=== PATIENT | female | born 1950 | race Caucasian/White ===

== ENCOUNTER 2016-10-09 09:39 | Emergency (ER) | payer OTHER ==
[~2016-10-09] VITALS: Ht 157.5 cm; Wt 59.0 kg
--- NOTE | 2016-10-09 10:09 | ED UPPER/LOWER EXTREMITY COMPL ---
History of Present Illness General Chief Complaint: Lower Extremity Problems Stated Complaint: L KNEE PAIN PAIN, FELL ON ICE Source: patient Exam Limitations: no limitations Vital Signs & Intake/Output Vital Signs & Intake/Output Vital Signs Date Time Temp Pulse Resp B/P Pulse O2 O2 Flow FiO2 Ox Delivery Rate 10/09 1317 96.9 79 18 118/79 100 Room Air 10/09 0952 95.6 81 18 134/84 95 Room Air Allergies Coded Allergies: cephalexin (From KEFLEX) (Intermediate, HIVES 10/09/16) ciprofloxacin (From CIPRO) (Intermediate, HIVES 10/09/16) Reconcile Medications Omeprazole 40 MG CAPSULE. 1 CAP PO DAILY HEART BURN (Reported) Paroxetine HCl 20 MG TABLET 1 TAB PO DAILY ANTIDEPRESSANT (Reported) Triage Note: C/O LEFT KNEE PAIN S/P FALL, SLIPPED ON ICE WHILE TAKING OUT GARBAGE. ABLE TO BEAR WEIGHT. Triage Nurses Notes Reviewed? yes Onset: Just prior to arrival Duration: hour(s): (1) Timing: single episode today Severity: moderate Severity Numbers: 6 Pain/Injury Location: Left: Knee. Method of Injury: fall Modifying Factors: Improves With: immobilization. Worsens With: movement. HPI: Patient is a 66-year-old female presenting to the emergency department with chief complaint of left knee pain after twisting and falling on ice prior to arrival. Denies any head injury or loss of consciousness. She reports that her left foot remained on the ground and her left knee twisted. Pain is moderate achy throbbing worse with any range of motion. Denies any other injuries. No radiation of the pain. Denies taking anything for pain prior to arrival or apply any ice. (PEDRITO WOOD) Past History Travel History Traveled to [place] past 21 day No Medical History Any Pertinent Medical History? see below for history Surgical History Surgical History: non-contributory Psychosocial History What is your primary language Romanian Tobacco Use: Never used ETOH Use: occasional use Family History Hx Contributory? No (PEDRITO WOOD) Review of Systems Review of Systems Constitutional: Reports: no symptoms. Comments Review of systems: See HPI, All other systems negative. Constitutional, no chills fever or weight loss HEENT: No visual changes no sore throat no congestion Cardiovascular: No chest pain ,palpitation Skin, no jaundice no rashes Respiratory: No dyspnea cough sputum or hemoptysis GI: No nausea no vomiting : No dysuria No hematuria Muscle skeletal: no back pain, no neck pain, Neurologic: No numbness no confusion NO COATES Psych: No stress anxiety Immunology: No splenectomy or history of AIDS (ABEBA RODRÍGUEZ,PEDRITO) Physical Exam Physical Exam General Appearance: well developed/nourished, no apparent distress, alert, awake , comfortable Comments: Well-developed well-nourished person in no acute distress HEENT: Nose is atraumatic. External auditory canal and Tympanic membranes clear. Pharynx normal. No swelling or edema. Neck: NORMAL INSPECTION Back: Nontender Cardiovascular: normal JVP Respiratory: No respiratory distress. Extremity: No edema, TENDER TO PALPATION OVER THE MEDIAL ASPECT OF THE LEFT PATELLA, NEGATIVE anterior and posterior draw tests. NEGATIVE BALLOTMENT. NO OBVIOUS EDEMA OR ECCHYMOSIS. Limited range of motion secondary to pain. No popliteal pain to palpation. Pedal pulses are 2+ bilaterally. Cap refill intact in left lower extremity. Neuro: Alert oriented x3, motor sensory normal Skin: No appreciable rash on exposed skin, skin is warm and dry. Psych: Mood and affect is normal, memory and judgment is normal. (ABEBA RODRÍGUEZ,PEDRITO) Progress Differential Diagnosis: contusion, dislocation, fracture, sprain, tendon injury Plan of Care: Orders Procedure Date/time Status Durable Medical Equipment 10/09 1136 Active Durable Medical Equipment 10/09 1035 Active Diagnostic Imaging: Viewed by Me: Radiology Read. Discussed w/RAD: Radiology Read. Radiology Impression: PATIENT: LEONEL DANGELO PRESENT AGE: 66 PATIENT ACCOUNT NO: [id number] : 49 LOCATION: [facility] ORDERING PHYSICIAN: PEDRITO RODRÍGUEZ SERVICE DATE: 10/09/16 EXAM TYPE: CAT - CT LOWER EXT WO IV CONTRAST EXAMINATION: CT KNEE WITHOUT CONTRAST, LEFT CLINICAL INFORMATION: Tibial spine fracture on radiograph. Status post fall. Knee pain. COMPARISON: Radiographs from the same day at 9:55 a.m. TECHNIQUE: Axial multidetector volumetric imaging was obtained through the left knee without intravenous contrast material Multiplanar reconstructed images in coronal and sagittal orientations were submitted. DLP: 414 mGy-cm. FINDINGS: An avulsion fracture is present at the PCL insertion on the posterior aspect of the tibial plateau centrally. The fragment measures 3 x 2.1 x 0.8 cm (AP by transverse by CC). There is minimal distraction of this fragment (1 mm). The fracture line extends into the far posterolateral margin of the medial tibial plateau articular surface as well as the posteromedial margin of the lateral tibial plateau articular surface. No involvement of the ACL footprint. No additional fractures are identified. Subcortical cystic changes at the superior third of the posterior nonweightbearing surface of the lateral femoral condyle are likely due to overlying cartilage loss. There is mild lateral subluxation of the patella on this fully extended view. Small patellar osteophytes are present. There is a moderate size joint effusion and Begum's cyst. No intra-articular loose bodies are identified. Mild edema is present within the subcutaneous fat anteriorly. IMPRESSION: 1. Nondisplaced avulsion fracture at the PCL insertion on the tibial plateau with minimal involvement of the articular surfaces of the medial and lateral femoral condyle. No involvement of the ACL insertion. 2. Moderate joint effusion and Begum's cyst. 3. Minimal patellofemoral and lateral compartment degenerative arthritis., PATIENT: LEONEL DANGELO PRESENT AGE: 66 PATIENT ACCOUNT NO: [id number] : 49 LOCATION: [facility] ORDERING PHYSICIAN: PEDRITO RODRÍGUEZ SERVICE DATE: 10/09/16 EXAM TYPE: RAD - XRY-KNEE COMPLETE LEFT EXAMINATION: XR KNEE, LEFT CLINICAL INFORMATION: Fall on ice with knee pain COMPARISON: None TECHNIQUE: Four views of the left knee. FINDINGS: A linear lucency is demonstrated on the oblique view in the region of the tibial spines concerning for a nondisplaced fracture. There is a moderate joint effusion. Minimal medial compartment joint space narrowing. IMPRESSION: Probable nondisplaced fracture in the region of the tibial spines. This could be confirmed and further evaluated with CT or MRI. 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 DICTATED BY: ZOIE MORENO MD DATE /TIME DICTATED:10/09/161035 BOAT JOINER:DIDI DATE/TIME TRANSCRIBED: 10/09/161035 CONFIDENTIAL, DO NOT COPY WITHOUT APPROPRIATE AUTHORIZATION. < Electronically signed in Other Vendor System> SIGNED BY: ZOIE MORENO MD 10/09/16 1041 Comments: declined pain medication arrival. She'll go for x-ray. 10/09/2016 12:25:02 PM patient informed of imaging results. Pending call back from orthopedics. Patient does have avulsion fracture on CT scan. We'll likely need MRI , worse follow-up. Spoke with Ortega Moreno MD, he will follow-up the patient in the office. Recommending the immobilizer, crutches, toe-touch weightbearing status. Patient aware. All questions answered. Discussed with Dr. aguilar and he agrees with plan. (PEDRITO WOOD) Departure Departure Time of Disposition: 1246 Disposition: HOME OR SELF CARE Condition: Stable Clinical Impression Primary Impression: Tibia fracture Qualifiers: Encounter type: initial encounter Tibia location: proximal Fracture type: closed Fracture morphology: unspecified fracture morphology Laterality: left Qualified Code: S82.102A - Unspecified fracture of upper end of left tibia, initial encounter for closed fracture Referrals: REDD MORALES,PALAK Hines (PCP/Family) MARIBELL MORALES,ORTEGA Farrell Additional Instructions: follow up with orthopedic call to make appt. rest ice and elevate. Wear knee immobilizer for support, do not remove the knee immobilizer until follow-up. Follow-up within the next week. Take Motrin or Tylenol [id number] for any aches or pains. Return for worsening symptoms or concerns. Departure Forms: Customer Survey General Discharge Information (PEDRITO WOOD) PA/DIRECTOR VETERINARY Co-Sign Statement Statement: ED Attending supervision documentation- x I saw and evaluated the patient. I have also reviewed all the pertinent lab results and diagnostic results. I agree with the findings and the plan of care as documented in the PA's/DIRECTOR VETERINARY's documentation. [] I have reviewed the ED Record and agree with the PA's/DIRECTOR VETERINARY's documentation. [] Additions or exceptions (if any) to the PAs/DIRECTOR VETERINARY's note and plan are summarized below: [] (NATALIE MORALES,FABIO) Procedures Splinting Location: left knee Manual Alignment Performed: No Pre-Made Type: knee imobilizer Splint: knee Splint Applied By: splint applied by other (nursing) Pre-Proc Neuro Vasc Exam: normal Post-Proc Neuro Vasc Exam: normal Progress: Patient tolerated procedure well. (PEDRITO WOOD)
[2016-10-09] MEDS ORDERED: PAROXETINE HCL20 M1 PO (10:22)
[2016-10-09] MEDS ORDERED: OMEPRAZOLE40 M1 PO (10:22)
--- NOTE | 2016-10-09 10:41 | RADIOLOGY REPORT ---
EXAMINATION: XR KNEE, LEFT CLINICAL INFORMATION: Fall on ice with knee pain COMPARISON: None TECHNIQUE: Four views of the left knee. FINDINGS: A linear lucency is demonstrated on the oblique view in the region of the tibial spines concerning for a nondisplaced fracture. There is a moderate joint effusion. Minimal medial compartment joint space narrowing. IMPRESSION: Probable nondisplaced fracture in the region of the tibial spines. This could be confirmed and further evaluated with CT or MRI. 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
--- NOTE | 2016-10-09 12:04 | CT SCAN REPORT ---
EXAMINATION: CT KNEE WITHOUT CONTRAST, LEFT CLINICAL INFORMATION: Tibial spine fracture on radiograph. Status post fall. Knee pain. COMPARISON: Radiographs from the same day at 9:55 a.m. TECHNIQUE: Axial multidetector volumetric imaging was obtained through the left knee without intravenous contrast material Multiplanar reconstructed images in coronal and sagittal orientations were submitted. DLP: 414 mGy-cm. FINDINGS: An avulsion fracture is present at the PCL insertion on the posterior aspect of the tibial plateau centrally. The fragment measures 3 x 2.1 x 0.8 cm (AP by transverse by CC). There is minimal distraction of this fragment (1 mm). The fracture line extends into the far posterolateral margin of the medial tibial plateau articular surface as well as the posteromedial margin of the lateral tibial plateau articular surface. No involvement of the ACL footprint. No additional fractures are identified. Subcortical cystic changes at the superior third of the posterior nonweightbearing surface of the lateral femoral condyle are likely due to overlying cartilage loss. There is mild lateral subluxation of the patella on this fully extended view. Small patellar osteophytes are present. There is a moderate size joint effusion and Begum's cyst. No intra-articular loose bodies are identified. Mild edema is present within the subcutaneous fat anteriorly. IMPRESSION: 1. Nondisplaced avulsion fracture at the PCL insertion on the tibial plateau with minimal involvement of the articular surfaces of the medial and lateral femoral condyle. No involvement of the ACL insertion. 2. Moderate joint effusion and Begum's cyst. 3. Minimal patellofemoral and lateral compartment degenerative arthritis.
[2016-10-09 13:17] VITALS: BP 118/79
== END 2016-10-09 13:17 ==
LOC: ERH 09:39
DX: S82.142A Displaced bicondylar fracture of left tibia, initial encounter for closed fracture (principal); W00.0XXA Fall on same level due to ice and snow, initial encounter
CPT/HCPCS: 73562-LT